=== PATIENT | female | born 1990 | race African-American/Black ===

== ENCOUNTER 2020-09-20 12:50 | Day surgery (SDC) | payer BC ==
[2020-09-13 17:26] VITALS: BMI 27.2
[2020-09-20 14:29] VITALS: TEMP 97.8
[2020-09-20 15:41] VITALS: BP 116/65; PULSE 68
== END 2020-09-20 15:15 | disposition home or self-care (01) ==
LOC: FASU-ENDO 12:50
PROVIDERS: ATTEND Internal Medicine Gastroenterology
PROC: 0DB68ZX Excision of Stomach, Via Natural or Artificial Opening Endoscopic, Diagnostic (ICD-10-PCS; 2020-09-20)
PROC: 0DB48ZX Excision of Esophagogastric Junction, Via Natural or Artificial Opening Endoscopic, Diagnostic (ICD-10-PCS; 2020-09-20)
PROC: 0DB98ZX Excision of Duodenum, Via Natural or Artificial Opening Endoscopic, Diagnostic (ICD-10-PCS; principal; 2020-09-20 14:15)
DX: K29.50 Unspecified chronic gastritis without bleeding (principal); K21.00 Gastro-esophageal reflux disease with esophagitis, without bleeding; R10.13 Epigastric pain
CPT/HCPCS: 84703; 88305-TC; 88342-TC

== ENCOUNTER → 2020-11-22 | Day surgery (SDC) | payer BC ==
[2020-11-21 07:54] VITALS: BMI 26.9
[~2020-11-22] MED LIST: LOCK ITEM NR ONE; PROPOFOL 20 ML ONE
[2020-11-22 10:31] VITALS: TEMP 98.2
[2020-11-22 10:50] VITALS: BP 124/70; PULSE 70
== END | disposition home or self-care (01) ==
LOC: FASU-ENDO 09:10
PROVIDERS: ATTEND Internal Medicine Gastroenterology
PROC: 0DJD8ZZ Inspection of Lower Intestinal Tract, Via Natural or Artificial Opening Endoscopic (ICD-10-PCS; principal; 2020-11-22 09:55)
DX: K64.0 First degree hemorrhoids (principal); K92.1 Melena
CPT/HCPCS: 84703

== ENCOUNTER 2021-01-03 11:42 | Day surgery (SDC) | payer BC ==
[2021-01-01 13:53] VITALS: BMI 26.9
[2021-01-03 13:07] VITALS: BP 122/68; PULSE 70
[2021-01-03 13:48] VITALS: TEMP 98
== END 2021-01-03 14:08 | disposition home or self-care (01) ==
LOC: FASU-ENDO 11:42
PROVIDERS: ATTEND Internal Medicine Gastroenterology
PROC: 0DJD8ZZ Inspection of Lower Intestinal Tract, Via Natural or Artificial Opening Endoscopic (ICD-10-PCS; principal; 2021-01-03 12:41)
DX: Z12.11 Encounter for screening for malignant neoplasm of colon (principal); K64.0 First degree hemorrhoids; K64.8 Other hemorrhoids; Z80.0 Family history of malignant neoplasm of digestive organs
CPT/HCPCS: 84703